=== PATIENT | male | born 1955 | race Caucasian/White ===

== ENCOUNTER 2021-02-06 07:52 | Day surgery (SDC) | payer OTHER, BC ==
[2021-02-02 14:59] VITALS: BMI 34.9
[2021-02-06 10:00] VITALS: BP 134/74; PULSE 65; TEMP 98.4
[2021-02-06] MEDS ORDERED: PROPOFOL 20 ML ONE ×2 (10:00)
== END 2021-02-06 10:05 | disposition home or self-care (01) ==
LOC: FASU-ENDO 07:52
PROVIDERS: ATTEND Internal Medicine Gastroenterology
PROC: 0DJD8ZZ Inspection of Lower Intestinal Tract, Via Natural or Artificial Opening Endoscopic (ICD-10-PCS; principal; 2021-02-06 09:17)
DX: Z12.11 Encounter for screening for malignant neoplasm of colon (principal); Z86.010 Personal history of colon polyps; K57.30 Diverticulosis of large intestine without perforation or abscess without bleeding; Z94.2 Lung transplant status; Z79.899 Other long term (current) drug therapy
CPT/HCPCS: 82962